=== PATIENT | male | born 1960 | race Caucasian/White ===

== ENCOUNTER → 2016-08-15 | Outpatient (CLI) | payer OTHER ==
[~2016-08-15] MED LIST: ENDOCET 5-3251 EACH PO; EYE HEALTH PO; FARXIGA5 MG PO; FISH OIL 1,0001 EAC1 PO; GABAPENTIN300 M2 PO; LIPITOR20 MG PO; LORAZEPAM1 MG PO; LUTEIN PO; METFORMIN HCL500 M1 PO; ONE DAILY FOR1 EACH PO; XELODA500 MG PO; ZOFRAN PO
--- NOTE | ~2016-08-15 | CT2 ---
[facility] A Service of [facility] RADIOLOGY TEXT RESULTS PATIENT: LEXIE SANDOVAL [facility] 56 UN[facility] #: [id number] AGE: [address]: Constantin Mathis MD SEX: M ORDER DR: [id number] [facility] [address] [place], [place] [address] [id number] O MR#: [id number] [facility] #: [id number] NAME: LEXIE SANDOVAL : 1960 SEX: M STUDY DATE/TIME: 08/15/2016 13:16 UNIT: [facility] ROOM: STUDY DESCRIPTION: CT Abd and Pelv W Cont Attending Physician: Constantin Mathis M.D. Referring Physician: Constantin Mathis M.D. Ordering Physician: Constantin Mathis M.D. Primary Care Physician: Bridgette Fatima Aprn MEDICAL IMAGING REPORT This report is preliminary unless electronic signature is present EXAM CT of the abdomen and pelvis with IV contrast media HISTORY Metastatic colon carcinoma. Followup and observation of a malignant process. TECHNIQUE Axial imaging of the abdomen and pelvis was obtained with IV contrast and compared to the study of 12/26/2015. Additionally, it is compared to the PET/CT scan of 04/24/2016. This CT examination was performed with one or more of the following radiation dose reduction techniques: automatic exposure control, adjustment of mA and/or kV according to patient size, and iterative reconstruction. FINDINGS Scans through the lung bases are normal. There is a longitudinally oriented area of low attenuation in the anterior segment of the right lobe measuring 3.8 x 2.1 cm. A second area of low attenuation is identified in the posterior segment of the right lobe of the liver just below the capsule measuring 4.3 x 2.9 cm. Spleen is normal. Gallbladder is absent. Adrenal glands appear normal and the pancreas appears normal. Both kidneys are essentially normal. There is a small incidental right renal cyst. There is no evidence of lymphadenopathy. No dilated or thickened loops of bowel are identified. There are postoperative changes of prior colon resection in the left flank. The patient appears to have had previous hernia repair on the right. No obvious lytic or blastic lesions are seen. The patient does have mild anterolisthesis of L4 on L5, present on prior scan as well. No evidence of recurrent tumor in the abdomen. These areas do not appear to have changed significantly in size and in fact appear decreased in size relative to the prior PET scan of 04/24. [facility] A Service of [facility] RADIOLOGY TEXT RESULTS PATIENT: LEXIE SANDOVAL LOCATION: [facility] : 56 UNIT #: [id number] AGE: [address]: Constantin Mathis MD SEX: M ORDER DR: CONCLUSION 1. Previous microwave ablation of the lesions in the right lobe of the liver as described above. No evidence of additional tumor recurrence or new lesions. 2. Status post cholecystectomy. 3. Postop changes of prior hernia repair and segmental colon resection. 4. No evidence of recurrent disease in the abdomen or pelvis. Dictated by... Gordo Govea M.D. THIS IS AN ELECTRONICALLY VERIFIED REPORT Gordo Govea M.D. at 08/18/2016 7:21 AM PETRA/mercy TD: 08/16/2016 11:19 JOB #: [id number] MEDICAL IMAGING REPORT Page 1 of 1 COPY
[2016-08-15 16:31] LABS: POC - CREATININE 1.27 mg/dL (0.64-1.27); POC - GFR >60.0 mL/min (>60)
== END | disposition home or self-care (01) ==
LOC: CCAT 11:54
PROVIDERS: Internal Medicine Hematology & Oncology
DX: Z08 Encounter for follow-up examination after completed treatment for malignant neoplasm (principal); G62.0 Drug-induced polyneuropathy; R07.9 Chest pain, unspecified; Z90.49 Acquired absence of other specified parts of digestive tract; Z98.890 Other specified postprocedural states; Z85.05 Personal history of malignant neoplasm of liver; Z85.038 Personal history of other malignant neoplasm of large intestine
CPT/HCPCS: 74177; 82565; Q9967

== ENCOUNTER → 2016-08-25 | Outpatient (CLI) | payer OTHER ==
[2016-08-25 09:26] LABS: URINE APPEARANCE CLEAR; URINE BILIRUBIN NEG (NEG); URINE BLOOD NEG (NEG); URINE COLOR YELLOW; URINE GLUCOSE >1000 MG/DL (NEG); URINE KETONE NEG (NEG); URINE LEUKOCYTE ESTERASE NEG (NEG); URINE NITRATE NEG (NEG); URINE PROTEIN 2+ (NEG); URINE SPECIFIC GRAVITY 1.033 (1.003-1.035); URINE UROBILINOGEN 0.2 MG/DL (NEG)
[2016-08-25 09:26] LABS: BASOPHIL# 0.1 X10e3 (0-0.3); BASOPHIL% 1.3 % (0-2.5); EOSINOPHIL# 0.3 X10e3 (0-0.7); EOSINOPHIL% 3.8 % (0.0-7.0); HEMATOCRIT 44.4 % (38.0-50.0); HEMOGLOBIN 14.9 gm/dL (13.0-16.0); LYMPHOCYTE# 1.5 X10e3 (1.0-3.5); LYMPHOCYTE% 21.6 % (17.0-45.0); MEAN CORPUSCULAR HEMOGLOBIN 29.3 PG (28-34); MEAN CORPUSCULAR HGB CONC 33.6 g/dL (30-36); MEAN PLATELET VOLUME 7.6 FL (6.5-11.5); MONOCYTE# 0.5 X10e3 (0-1.0); MONOCYTE% 7.6 % (3.0-12.0); NEUTROPHIL# 4.6 X10e3 (1.5-7.1); NEUTROPHIL% 65.7 % (40-75); PLATELET COUNT 202 X10e3 (140-420); RED BLOOD COUNT 5.11 X10e (3.90-5.60)
[2016-08-25 09:29] LABS: DIFF IND NO
[2016-08-25 10:21] LABS: ALBUMIN SERUM 3.9 g/dL (3.5-5.0); BILIRUBIN,TOTAL 0.3 mg/dL (0.2-2.0); CALCIUM SERUM 9.7 mg/dL (8.4-10.2); GLOM FILT RATE Estimated 82.6 mL/min (>60); MAGNESIUM 1.8 mg/dL (1.6-3.0); POTASSIUM 4.3 mmol/L (3.5-5.1); PROTEIN TOTAL SERUM 7.5 g/dL (6.0-8.3)
[2016-08-25 11:41] LABS: CREATININE,RANDOM URINE 108 mg/dL; TOTAL PROTEIN,RANDOM URINE 75 mg/dl (<10)
== END | disposition home or self-care (01) ==
LOC: CLAB 08:26
PROVIDERS: Internal Medicine Hematology & Oncology
DX: C18.7 Malignant neoplasm of sigmoid colon (principal); C78.7 Secondary malignant neoplasm of liver and intrahepatic bile duct; G62.0 Drug-induced polyneuropathy; R07.9 Chest pain, unspecified
CPT/HCPCS: 36415; 80053; 81003; 82378; 82570; 83735; 84156; 85025

== ENCOUNTER → 2016-09-08 | Outpatient (CLI) | payer OTHER ==
[2016-09-08 16:09] LABS: BILIRUBIN,TOTAL 0.6 mg/dL (0.2-2.0); BUN/CREATININE RATIO 10.9; CALCIUM SERUM 9.2 mg/dL (8.4-10.2); CREATININE SERUM 1.1 mg/dL (0.6-1.4); GLOM FILT RATE Estimated 73.6 mL/min (>60); POTASSIUM 4.2 mmol/L (3.5-5.1); PROTEIN TOTAL SERUM 7.9 g/dL (6.0-8.3)
[2016-09-10 18:06] LABS: UPE RAND ALPHA1 GLOB 4 % (()); UPE RAND PROT/CREAT 2963 (22-128); UPE RANDOM ALB (PNL) 76 % (()); UPE RANDOM ALPHA 2 GLOB 3 % (()); UPE RANDOM BETA GLOB 9 % (()); UPE RANDOM CREATININE 59.4 mg/dL (20-370); UPE RANDOM GAMMA GLOB 8 % (()); UPE RANDOM TOTAL PROTEIN (PNL) 176 mg/dL (5-25)
== END | disposition home or self-care (01) ==
LOC: CLAB 15:25
PROVIDERS: Internal Medicine Medical Oncology
DX: C18.7 Malignant neoplasm of sigmoid colon (principal); C78.7 Secondary malignant neoplasm of liver and intrahepatic bile duct; G62.0 Drug-induced polyneuropathy; R07.9 Chest pain, unspecified
CPT/HCPCS: 36415; 80053; 84156; 84166

== ENCOUNTER → 2016-12-30 | Outpatient (CLI) | payer OTHER ==
--- NOTE | ~2016-12-30 | NM8 ---
[facility] A Service of [facility] RADIOLOGY TEXT RESULTS PATIENT: LEXIE SANDOVAL LOCATION: [facility] : 56 UNIT #: [id number] AGE: [address]: Constantin Mathis MD SEX: M ORDER DR: [id number] [place] [id number] [facility]. [place], [place] [address] [id number] O MR#: [id number] Acc #: [id number] NAME: LEXIE SANDOVAL : 1960 SEX: M STUDY DATE/TIME: 12/30/2016 11:56 UNIT: [facility] ROOM: STUDY DESCRIPTION: RI Bone or Joint Whole Body Attending Physician: Constantin Mathis M.D. Referring Physician: Constantin Mathis M.D. Ordering Physician: Constantin Mathis M.D. Primary Care Physician: Bridgette Fatima Aprn MEDICAL IMAGING REPORT This report is preliminary unless electronic signature is present EXAM Whole-body bone scan. HISTORY 56-year-old male diagnosed with colon cancer 1 year ago with apparent liver metastases. Complains of right posterior hip pain. COMPARISON Head CT, 10/29/2016. FINDINGS Whole-body and selected spot images were performed of the axial and appendicular skeleton following the intravenous administration of 30.7 mCi technetium-99m MDP. The examination demonstrates degenerative uptake within the medial compartment of the left knee. Mild increased uptake is also seen within the right mandible, probably related to prior dental disease or dental surgery. Degenerative uptake seen in the midfoot bilaterally. No abnormal uptake identified within the long bones, pelvis, or spine or skull to suggest osseous metastatic disease. Bilateral renal activity and normal bladder activity noted. IMPRESSION No bone scan findings to suggest osseous metastatic disease. Degenerative uptake noted within the medial compartment left knee and also within the midfoot bilaterally, as well as some uptake in the right mandible, probably related prior dental surgery or dental disease. Dictated by.Dinesh Rosales M.D. THIS IS AN ELECTRONICALLY VERIFIED REPORT [facility] A Service of [facility] RADIOLOGY TEXT RESULTS PATIENT: LEXIE SANDOVAL LOCATION: [facility] : 56 UNIT #: [id number] AGE: [address]: Constantin Mathis MD SEX: M ORDER DR: Deepthi Rosales M.D. at 01/01/2017 2:05 PM IVETT/lester TD: 12/31/2016 21:14 JOB #: [id number] MEDICAL IMAGING REPORT Page 1 of 1 COPY
== END | disposition home or self-care (01) ==
LOC: CNUC 08:09
DX: C78.7 Secondary malignant neoplasm of liver and intrahepatic bile duct (principal); C18.7 Malignant neoplasm of sigmoid colon; G62.0 Drug-induced polyneuropathy; R07.9 Chest pain, unspecified; R94.8 Abnormal results of function studies of other organs and systems
CPT/HCPCS: 78306; A9503